=== PATIENT | female | born 1980 | race Caucasian/White ===

== ENCOUNTER 2018-09-18 09:25 | Emergency (ER) | payer OTHER ==
[~2018-09-18] VITALS: Ht 154.9 cm; Wt 78.0 kg
[2018-09-18 09:27] VITALS: BP 112/67
--- NOTE | 2018-09-18 09:37 | NUR ---
PATIENT AMBULATED TO BED 4.
--- NOTE | 2018-09-18 09:55 | NUR ---
C/O SHARP L EAR PAIN RADIATING TO JAW X 3 DAYS. PT REPORTS MUFFELED HEARING. DENIES FEVER/N/V/D/RECENT ILLNESS/INJURY, DIZZINESS. INSIDE OF L EAR APPEARS RED AND HAS WHITE DISCHARGE. SKIN IS PINK/WARM/DRY; AAOX4 WITH EVEN AND STEADY GAIT; VSS; PATIENT POSITIONED FOR COMFORT; HOB ELEVATED; BEDRAILS UP X1; BED DOWN. ER MD MADE AWARE OF PT STATUS.
--- NOTE | 2018-09-18 09:55 | NUR ---
ERMD AT BEDSIDE
[2018-09-18 10:27] VITALS: BP 112/67
--- NOTE | 2018-09-18 10:27 | NUR ---
Patient discharged with v/s stable. Written and verbal after care instructions given and explained. Patient alert, oriented and verbalized understanding of instructions. Ambulatory with steady gait. All questions addressed prior to discharge. ID band removed. Patient advised to follow up with PMD. Rx of CIPRODEX, IBUPROFEN given. Patient educated on indication of medication including possible reaction and side effects. Opportunity to ask questions provided and answered.
== END 2018-09-18 10:27 | disposition home or self-care (01) ==
LOC: MED 09:25
DX: H60.92 Unspecified otitis externa, left ear (principal); Z88.2 Allergy status to sulfonamides; Z88.8 Allergy status to other drugs, medicaments and biological substances
CPT/HCPCS: 99283